=== PATIENT | female | born 1985 | race Caucasian/White ===

== ENCOUNTER 2024-03-11 16:58 | Emergency (ER) | payer OTHER | END 2024-03-11 18:11 | disposition home or self-care (01) | LOC: MADERS 16:58 | DX: S83.92XA Sprain of unspecified site of left knee, initial encounter (principal); F17.210 Nicotine dependence, cigarettes, uncomplicated; V80.010A Animal-rider injured by fall from or being thrown from horse in noncollision accident, initial encounter | CPT/HCPCS: 99283 ==